=== PATIENT | male | born 1965 | race Caucasian/White ===

== ENCOUNTER 2020-06-24 19:16 | Emergency (ER) | payer OTHER ==
[~2020-06-24] VITALS: Ht 175.3 cm; Wt 86.2 kg
[2020-06-24] MEDS ORDERED: FLEXERIL PO (19:22)
[2020-06-24] MEDS ORDERED: GABAPENTIN100 MG PO (20:30)
[2020-06-24] MEDS ORDERED: NORCO 5-325 TA1 EAC2 PO (20:30)
[2020-06-24 20:50] VITALS: BP 175/94
== END 2020-06-24 20:50 | disposition home or self-care (01) ==
LOC: ER 19:16
DX: M54.41 Lumbago with sciatica, right side (principal); Z79.899 Other long term (current) drug therapy